=== PATIENT | male | born 1980 ===

== ENCOUNTER → 2025-01-12 | Day surgery (SDC) | payer OTHER ==
[2025-01-10 13:12] VITALS: BP 97/65
[~2025-01-12] VITALS: Ht 172.7 cm; Wt 75.7 kg
[~2025-01-12] MED LIST: BUPIVACAINE HCL/MPF 0.5% 30ML VIAL ONE; CEFAZOLIN SODIUM 1,000 MG VIAL ONE; ENOXAPARIN SODIUM 40 MG/0.4 ML SYRINGE SUBCUTANEO ONE; LIDOCAINE HCL 1%/EPINEPHRINE 20ML VIAL IJ ONE; MIRALAX17 GM PO; NEURONTIN800 MG PO; TAMS0.4C PO; TRAM1TAB98 PO
== END | disposition home or self-care (01) ==
LOC: ADM 01-10 11:00 → CIR.AMB 05:32
PROVIDERS: ATTEND Surgery
DX: K40.90 Unilateral inguinal hernia, without obstruction or gangrene, not specified as recurrent (principal); K42.0 Umbilical hernia with obstruction, without gangrene
CPT/HCPCS: 49650; 49594; 15734; C1781